=== PATIENT | female | born 1960 | race Hispanic/Latino ===

== ENCOUNTER → 2017-12-11 | Outpatient (CLI) | payer MEDICAID ==
[~2017-12-11] MED LIST: IOHEXOL 350 MG/ML 100ML INFUS..BTL IV ONE
== END | disposition home or self-care (01) ==
LOC: OIH 08:30
PROVIDERS: ATTEND Internal Medicine Cardiovascular Disease
DX: I65.23 Occlusion and stenosis of bilateral carotid arteries (principal); I70.90 Unspecified atherosclerosis
CPT/HCPCS: 70498; Q9967

== ENCOUNTER → 2018-03-24 | Outpatient (CLI) | payer MEDICAID | END | disposition home or self-care (01) | LOC: SHCH 08:11 | PROVIDERS: ATTEND Internal Medicine Cardiovascular Disease | DX: I10 Essential (primary) hypertension (principal) | CPT/HCPCS: 93975 ==

== ENCOUNTER 2018-06-10 05:53 | Day surgery (SDC) | payer MEDICAID ==
[~2018-06-10] VITALS: Ht 162.6 cm; Wt 117.0 kg
[~2018-06-10 05:53] MED LIST changes: +ACET1TAB15 PO; +ALPR2TAB7 PO; +AMLO5TAB9 PO; +ASPI-555 PO; +ATOR10TA69 PO; +BUDE10.2 IH; +CETI10TA57 PO; +EMPA25TA PO; +ERGO500014 PO; +EXEN2PEN SQ; +HYDR-2534 PO; -IOHEXOL 350 MG/ML 100ML INFUS..BTL IV ONE; +LABE200T5 PO; +LOSA100T58 PO; +METF-527 PO; +TIOT18CA3 IH
[2018-06-10] MEDS ORDERED: SODIUM CHLORIDE 0.9% 1000ML 1,000 ML IV ONE (05:54)
[2018-06-10 06:41] VITALS: BP 109/42
[2018-06-10 08:42] VITALS: BP 95/51
[2018-06-10 08:46] VITALS: BP 102/57
[2018-06-10 08:52] VITALS: BP 102/57
[2018-06-10 08:56] VITALS: BP 109/64
[2018-06-10 09:02] VITALS: BP 141/81
== END 2018-06-10 09:20 | disposition home or self-care (01) ==
LOC: ENDO 05:53 → DAH 05:53 → ENDO 09:20
PROVIDERS: ATTEND Internal Medicine
DX: K57.30 Diverticulosis of large intestine without perforation or abscess without bleeding (principal); K29.50 Unspecified chronic gastritis without bleeding; K44.9 Diaphragmatic hernia without obstruction or gangrene; K21.0 Gastro-esophageal reflux disease with esophagitis; K31.89 Other diseases of stomach and duodenum; D50.9 Iron deficiency anemia, unspecified; Z68.41 Body mass index [BMI] 40.0-44.9, adult; Z79.899 Other long term (current) drug therapy; Z79.84 Long term (current) use of oral hypoglycemic drugs; I10 Essential (primary) hypertension; F41.9 Anxiety disorder, unspecified; Z90.710 Acquired absence of both cervix and uterus; Z80.0 Family history of malignant neoplasm of digestive organs; E66.01 Morbid (severe) obesity due to excess calories
CPT/HCPCS: 43239; 45380; 88305; 88342; 93005; A4606; J7030

== ENCOUNTER 2018-11-17 11:22 | Emergency (ER) | payer MEDICAID ==
[2018-11-17] MEDS ORDERED: ORPHENADRINE CITRATE 30 MG/ML ML ONE (12:12)
[2018-11-17] MEDS ORDERED: KETOROLAC TROMETHAMINE 30MG/ML ONE (12:12)
[2018-11-17 12:17] LABS: BASOPHILS % (AUTO) 0.4 % (0.0-5.0); EOSINOPHILS % (AUTO) 4.9 % (0.0-8.0); HEMATOCRIT 30.6 % (36-48); LYMPHOCYTES % (AUTO) 15.4 % (21.0-51.0); MEAN CORPUSCULAR HEMOGLOBIN 30.8 pg (27.0-33.0); MEAN CORPUSCULAR HGB CONC 33.9 g/dL (32.0-36.0); MEAN CORPUSCULAR VOLUME 90.7 fL (79-99); NEUTROPHILS % (AUTO) 71.3 % (40.0-77.0); PLATELET COUNT (AUTO) 199 K/uL (130-400); RED BLOOD CELL COUNT(AUTO) 3.38 MIL/uL (4.00-5.50); RED CELL DISTRIBUTION WIDTH 12.7 % (11.0-15.5); WHITE BLOOD COUNT (AUTO) 6.8 K/uL (4.8-10.8)
[2018-11-17 12:22] LABS: CREATININE 1.3 mg/dL (0.5-1.5); POTASSIUM 3.2 mmol/L (3.5-5.1)
== END 2018-11-17 15:22 | disposition home or self-care (01) ==
LOC: EDH 11:22
DX: M54.12 Radiculopathy, cervical region (principal); I10 Essential (primary) hypertension; E11.9 Type 2 diabetes mellitus without complications; Z79.899 Other long term (current) drug therapy
CPT/HCPCS: 36415; 72040; 80048; 85025; 96374; 96375; 99285; J1885; J2360

== ENCOUNTER 2019-04-24 14:23 | Emergency (ER) | payer MEDICAID ==
[2019-04-24] MEDS ORDERED: ACETAMINOPHEN-CODEINE 300/30MG TAB ONE (17:03)
== END 2019-04-24 17:26 | disposition home or self-care (01) ==
LOC: EDH 14:23
DX: M25.561 Pain in right knee (principal); M25.461 Effusion, right knee; E11.9 Type 2 diabetes mellitus without complications; I10 Essential (primary) hypertension; Z90.49 Acquired absence of other specified parts of digestive tract; Z90.710 Acquired absence of both cervix and uterus
CPT/HCPCS: 29505; 73562

== ENCOUNTER → 2019-07-22 | Outpatient (CLI) | payer MEDICAID ==
[~2019-07-22] MED LIST changes: +AMLO-257 PO; -AMLO5TAB9 PO; -ASPI-555 PO; +ASPI-556 PO
== END | disposition home or self-care (01) ==
LOC: SHCH 13:05
PROVIDERS: ATTEND Internal Medicine Cardiovascular Disease
DX: I65.23 Occlusion and stenosis of bilateral carotid arteries (principal); I25.10 Atherosclerotic heart disease of native coronary artery without angina pectoris
CPT/HCPCS: 93880

== ENCOUNTER 2023-07-02 06:11 | Day surgery (SDC) | payer MEDICAID ==
[~2023-07-02] VITALS: Ht 162.6 cm; Wt 108.9 kg
[2023-07-02] VITALS (12 sets, daily range): BP systolic 105–138; BP diastolic 49–59; PULSE 64–78; RESP 15–16
[~2023-07-02 06:11] MED LIST changes: -ACET1TAB15 PO; +ALLO100T PO; +ALPR0.5T8 PO; -ALPR2TAB7 PO; +ASCO500T19 PO; +DICY10CA2 PO; +ELUX75TA PO; -EMPA25TA PO; -ERGO500014 PO; -EXEN2PEN SQ; +GABA600T10 PO; -HYDR-2534 PO; +HYDR50TA PO; +IRON1CAP32 PO; -LABE200T5 PO; +LABE200T7 PO; -LOSA100T58 PO; +LOSA100T59 PO; +MAGN400C PO; -METF-527 PO; +MINO50CA6 PO; +POTA10CA95 PO; -TIOT18CA3 IH; +TIRZ12.5 SQ; +TYLENOL WITH COD PO
[2023-07-02] MEDS: 0.9%NACL 1000ML 1,000 ML IV ONE (07:55)
[2023-07-02] MEDS ORDERED: PROPOFOL 10 MG/ML 20ML VIAL IV ONE (08:55)
== END 2023-07-02 10:29 | disposition home or self-care (01) ==
LOC: ENDO 06:11 → DAH 06:11 → ENDO 10:29
PROVIDERS: ATTEND Internal Medicine Gastroenterology
DX: Z12.11 Encounter for screening for malignant neoplasm of colon (principal); K63.5 Polyp of colon; K76.0 Fatty (change of) liver, not elsewhere classified; K21.9 Gastro-esophageal reflux disease without esophagitis; K57.30 Diverticulosis of large intestine without perforation or abscess without bleeding; I10 Essential (primary) hypertension; F41.9 Anxiety disorder, unspecified; R94.5 Abnormal results of liver function studies; D64.9 Anemia, unspecified; E78.5 Hyperlipidemia, unspecified; K58.9 Irritable bowel syndrome, unspecified; J44.9 Chronic obstructive pulmonary disease, unspecified; M19.90 Unspecified osteoarthritis, unspecified site; Z80.0 Family history of malignant neoplasm of digestive organs; Z83.3 Family history of diabetes mellitus; Z79.82 Long term (current) use of aspirin; Z88.8 Allergy status to other drugs, medicaments and biological substances; Z82.49 Family history of ischemic heart disease and other diseases of the circulatory system; Z79.899 Other long term (current) drug therapy; Z90.710 Acquired absence of both cervix and uterus
CPT/HCPCS: 45385; 82948 ×2; J7030; J3490; A4620; A4649; A4215 ×2; A4223; A4222; A4221; A4663; A4606; 45382; J2704

== ENCOUNTER 2023-11-12 06:00 | Day surgery (SDC) | payer MEDICAID ==
[2023-11-12] VITALS (11 sets, daily range): BP systolic 110–130; BP diastolic 57–65; PULSE 64–73; RESP 15–18; TEMP 96.6–98.2
[~2023-11-12] VITALS: Ht 167.6 cm; Wt 108.9 kg
[~2023-11-12 06:00] MED LIST changes: +GABA-1405 PO; -GABA600T10 PO
[2023-11-12] MEDS ORDERED: LOPE2TAB26 PO (06:43)
[2023-11-12] MEDS: 0.9%NACL 1000ML 1,000 ML IV ONE (07:02)
[2023-11-12] MEDS ORDERED: proPOFol 10 MG/ML 20ML VIAL IV ONE (07:42)
[2023-11-12] MEDS ORDERED: LIDOCAINE HCL 1% 20 ML VIAL ONE (07:42)
== END 2023-11-12 08:58 | disposition home or self-care (01) ==
LOC: DAH 06:00 → ENDO 06:00
PROVIDERS: ATTEND Internal Medicine Gastroenterology
DX: K59.04 Chronic idiopathic constipation (principal); D12.8 Benign neoplasm of rectum; K64.1 Second degree hemorrhoids; K57.30 Diverticulosis of large intestine without perforation or abscess without bleeding; K58.0 Irritable bowel syndrome with diarrhea; K44.9 Diaphragmatic hernia without obstruction or gangrene; D64.9 Anemia, unspecified; K74.02 Hepatic fibrosis, advanced fibrosis; Z80.0 Family history of malignant neoplasm of digestive organs; K64.4 Residual hemorrhoidal skin tags; J44.9 Chronic obstructive pulmonary disease, unspecified; K21.9 Gastro-esophageal reflux disease without esophagitis; E66.9 Obesity, unspecified; I10 Essential (primary) hypertension; Z90.710 Acquired absence of both cervix and uterus; Z68.41 Body mass index [BMI] 40.0-44.9, adult; Z88.8 Allergy status to other drugs, medicaments and biological substances; Z79.82 Long term (current) use of aspirin; Z79.899 Other long term (current) drug therapy
CPT/HCPCS: 82948; 45385; J7030 ×2; J3490; A4620; A7002; J2704